=== PATIENT | female | born 1990 | race Caucasian/White ===

== ENCOUNTER 2018-07-25 08:08 | Emergency (ER) | payer OTHER ==
[~2018-07-25] VITALS: Ht 160 cm; Wt 107.0 kg
[~2018-07-25 08:08] MED LIST: NO MEDS
[2018-07-25 08:13] VITALS: BP 137/82; PULSE 80; RESP 16; Ht 160 cm; Wt 107.0 kg
[2018-07-25] MEDS ORDERED: ACET325T33 PO (08:42)
--- NOTE | 2018-07-25 09:09 | ERD ---
ER Documentation Chief Complaint Chief Complaint pt bib self with c/o fever, ear pain and sinus congestion x 3 days HPI 27 yr old female complaining of runny nose, cough and congestion. Has had symptoms for 3 days. Patient is 8 weeks . Has not taken medication for symptoms. Prediabetic, NKDA, surgical history: gallstones. Social history denies. ROS All systems reviewed and are negative except as per history of present illness. Medications Home Meds Active Scripts Acetaminophen* (Tylenol*) 325 Mg Tablet, 2 TAB PO Q6 PRN for PAIN AND OR ELEVATED TEMP, #20 TAB Prov:JYOTI VIZCAINO PA-C 07/25/18 Reported Medications [No Meds] No Conflict Check 06/03/10 Allergies Allergies: Coded Allergies: No Known Allergies (Verified Allergy, Unknown, 06/03/10) PMhx/Soc History of Surgery: No Anesthesia Reaction: No Hx Neurological Disorder: No Hx Respiratory Disorders: No Hx Cardiac Disorders: No Hx Psychiatric Problems: No Hx Miscellaneous Medical Probl: No Hx Alcohol Use: No Hx Substance Use: No Hx Tobacco Use: No FmHx Family History: No diabetes, No coronary disease, No other Physical Exam Vitals Vital Signs Date Temp Pulse Resp B/P (MAP) Pulse Ox O2 O2 Flow FiO2 Time Delivery Rate 07/25/18 99.3 80 16 137/82 99 08:13 (100) Physical Exam GENERAL: The patient is well-appearing, well-nourished, in no acute distress HEENT: Atraumatic. Conjunctivae are pink. Pupils equal, round, and reactive to light. There is no scleral icterus. Tympanic membranes clear bilaterally. Oropharynx clear. NECK: C-spine is soft and supple. There is no meningismus. There is no cervical lymphadenopathy. CHEST: Clear to auscultation bilaterally. There are no rales, wheezes or rhonchi. HEART: Regular rate and rhythm. No murmurs, clicks, rubs or gallops. Procedures/MDM MDM: 19-year-old female presenting with URI symptoms. I do not believe patient requires antibiotics. Patient symptoms are likely associated with viral syndrome. Patient is discharged with strict ER precautions and told to follow-up primary care. All questions answered at discharge Departure Diagnosis: Primary Impression: URI (upper respiratory infection) Condition: Stable Patient Instructions: Uri, Viral, No Abx (Adult) Referrals: [facility] YOU HAVE RECEIVED A MEDICAL SCREENING EXAM AND THE RESULTS INDICATE THAT YOU DO NOT HAVE A CONDITION THAT REQUIRES URGENT TREATMENT IN THE EMERGENCY DEPARTMENT. FURTHER EVALUATION AND TREATMENT OF YOUR CONDITION CAN WAIT UNTIL YOU ARE SEEN IN YOUR DOCTORS OFFICE WITHIN THE NEXT 1-2 DAYS. IT IS YOUR RESPONSIBILITY TO MAKE AN APPOINTMENT FOR FOLOW-UP CARE. IF YOU HAVE A PRIMARY DOCTOR --you should call your primary doctor and schedule an appointment IF YOU DO NOT HAVE A PRIMARY DOCTOR YOU CAN CALL OUR PHYSICIAN REFERRAL HOTLINE AT IF YOU CAN NOT AFFORD TO SEE A PHYSICIAN YOU CAN CHOSE FROM THE FOLLOWING [facility] [address] [facility] [address] [facility] [facility] [address] [facility] [address] [facility]. [facility] [address] [facility]. [facility] [address] Additional Instructions: FOLLOW UP WITH YOUR PRIMARY CARE PHYSICIAN TOMORROW.Return to this facility if you are not improving as expected. JYOTI VIZCAINO PA-C Jul 25, 2018 09:09
== END 2018-07-25 09:19 | disposition home or self-care (01) ==
LOC: FTE 08:08
DX: J06.9 Acute upper respiratory infection, unspecified (principal)
CPT/HCPCS: 99282

== ENCOUNTER 2019-01-27 10:44 | Outpatient (CLI) | payer OTHER ==
[~2019-01-27] VITALS: Ht 160 cm; Wt 115.5 kg
[~2019-01-27 10:44] MED LIST changes: +ACET325T33 PO; +PREN-93 PO
[2019-01-27 11:02] VITALS: BP 140/71; PULSE 93; RESP 18; Ht 160 cm; Wt 115.5 kg
[2019-01-27] MEDS ORDERED: LACTATED RINGER'S 1,000 ML IV SCH (11:30)
[2019-01-27] MEDS ORDERED: ACETAMINOPHEN 325 MG TAB PO ONE (13:00)
== END 2019-01-27 13:40 | disposition home or self-care (01) ==
LOC: OBT 10:44 → L-D 10:44 → OBT 13:40
PROVIDERS: ATTEND Obstetrics & Gynecology
DX: O13.3 Gestational [pregnancy-induced] hypertension without significant proteinuria, third trimester (principal); Z3A.34 34 weeks gestation of pregnancy
CPT/HCPCS: 36415; 76815; 76818; 80053; 81003; 84560; 85025; 85384; 85610; 85730; 87086; 96360; J7120; Z7500; Z7610; G0463